=== PATIENT | male | born 1985 | race Caucasian/White ===

== ENCOUNTER 2019-06-08 10:25 | Emergency (ER) | payer MEDICAID ==
[~2019-06-08] VITALS: Ht 165.1 cm; Wt 77.0 kg
[2019-06-08 11:00] VITALS: BP 118/72
[2019-06-08] MEDS ORDERED: LORAZEPAM 1MG TABLET PO ONE (11:00)
== END 2019-06-08 11:30 | disposition home or self-care (01) ==
LOC: ER 10:25
DX: F41.9 Anxiety disorder, unspecified (principal)
CPT/HCPCS: 71045; 93005; 99284